=== PATIENT | male | born 1985 | race Caucasian/White ===

== ENCOUNTER 2017-10-20 00:01 | Emergency (ER) | payer SELFPAY ==
[~2017-10-20] VITALS: Ht 179.1 cm; Wt 86.0 kg
[2017-10-20 00:14] VITALS: BP 156/100; PULSE 71; RESP 18; TEMP 99; O2SAT 99
[2017-10-20] MEDS ORDERED: AMOX500T PO (03:09)
[2017-10-20] MEDS ORDERED: ACETAMINOPHEN/HYDROcodone 325 MG/5 MG TAB PO ONE (03:15)
[2017-10-20] MEDS ORDERED: AMOXICILLIN (TRIHYDRATE) 500 MG CAP PO ONE (03:15)
--- NOTE | 2017-10-20 03:15 | PD ---
HPI Chief Complaint: Oral / Dental Pain or Problem Time Seen by Provider: 03:05 Travel History International Travel<30 days: No Contact w/Intl Traveler<30days: No Traveled to known affect area: No History of Present Illness HPI 32-year-old white male presents emergency department with complaints of dental pain for the last 3-4 days. He states the pain is moderate. No alleviating or exacerbating activity. PFSH Past Medical History Medical History: Denies Significant Hx Tetanus Vaccination: Unknown Influenza Vaccination: No Past Surgical History Surgical History: No Previous Surgery Social History Alcohol Use: No Tobacco Use: Yes Substance Use: Yes (MARIJUANA) Allergies-Medications (Allergen,Severity, Reaction): Coded Allergies: No Known Allergies (Unverified , 10/20/17) Reported Meds & Prescriptions Reported Meds & Active Scripts Active Amoxicillin 500 Mg Tab 500 Mg PO TID 10 Days Review of Systems Except as stated in HPI: all other systems reviewed are Neg HENT: Positive: Gingival Bleeding, Dental Difficulties, No: Sore Throat, Earache Physical Exam Narrative GENERAL: Well-developed, well-nourished in no acute distress. Nontoxic appearing. HEAD: Normocephalic, atraumatic. EYES: Pupils equal round and reactive. Extraocular motions intact. No scleral icterus. No injection or drainage. ENT: TMs clear without erythema. The external auditory canals clear. Nose: clear . Posterior pharynx is pink and moist. No tonsillar edema or exudate. Uvula midline. Airway patent. The patient has multiple, multiple dental caries. Patient points to his left upper and lower mandible as a source of his pain. NECK: Trachea midline.Supple, nontender, moves head freely. No central bony tenderness or spasm. CARDIOVASCULAR: Regular rate and rhythm without murmurs, gallops, or rubs. RESPIRATORY: Clear to auscultation. Breath sounds equal bilaterally. No wheezes , rales, or rhonchi. GASTROINTESTINAL: Abdomen soft, non-tender, nondistended. No hepato-splenomegaly , or palpable masses. No guarding. EXTREMITIES: No clubbing, cyanosis, or edema. No joint tenderness, effusion, or edema noted. BACK: Nontender without deformity or crepitance. No flank tenderness. Data Data Last Documented VS Vital Signs Date Time Temp Pulse Resp B/P (MAP) Pulse Ox O2 Delivery O2 Flow Rate FiO2 10/20/17 02:32 18 10/20/17 00:14 99.0 71 156/100 (118) 99 Orders Orders Amoxicillin (Trimox) (10/20/17 03:15) Acetamin-Hydrocod 325-5 Mg ([place] 5-325 (10/20/17 03:15) Ed Discharge Order (10/20/17 03:10) MDM Medical Decision Making Medical Screen Exam Complete: Yes Emergency Medical Condition: Yes Medical Record Reviewed: Yes Differential Diagnosis MDM: Moderate Differential diagnoses: Dental abscess, dental caries, osteitis, cellulitis Narrative Course Patient was given amoxicillin 500 and hydrocodone 5 mg p.o. This is Dental caries, dentalgia Diagnosis Primary Impression: Dentalgia Additional Impression: Dental caries Additional Instructions: Rest. [place] gargles. [place] oil on cotton balls. 3 Advil every 6 hours. Amoxicillin. follow-up with a dentist as soon as possible. And return to the ER if any problems. Med/Other Pt SpecificInfo: Prescription(s) given Scripts Amoxicillin (Amoxicillin) 500 Mg Tab 500 MG PO TID for Infection for 10 Days, TAB 0 Refills Prov: Margarita Corado MD 10/20/17 Disposition: 01 DISCHARGE HOME Condition: Chris Castillo Oct 20, 2017 03:15
== END 2017-10-20 03:46 | disposition home or self-care (01) ==
LOC: NEPD 00:01
DX: K02.9 Dental caries, unspecified (principal); Z72.0 Tobacco use
CPT/HCPCS: 99283